=== PATIENT | male | born 2000 | race American Indian/Alaskan Native ===

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

== ENCOUNTER 2020-01-04 07:00 | Emergency (ER) | payer SELFPAY ==
[2020-01-04 07:31] VITALS: BP 110/77
[2020-01-04] MEDS ORDERED: LIDOCAINE MPF (2%) 20 MG/1 ML VIAL 5 ML INFILTRATI ONE (09:38)
[2020-01-04] MEDS ORDERED: LIDOCAINE (2%) 20 MG/1 ML VIAL 20 ML MDV INFILTRATI ONE ×2 (09:45→09:46)
--- NOTE | 2020-01-04 10:11 | Emergency Department Report ---
ED ENT HPI - General Chief complaint: Skin/Abscess/Foreign Body Stated complaint: FB/LEFT EAR Time Seen by Provider: 01/04/20 09:25 Source: patient Mode of arrival: Ambulatory Limitations: No Limitations - History of Present Illness Initial comments: 19-year-old -[place] male patient complains of insect in the left ear x today. He states he felt to crawl into his ear he now has ear pain. He denies any headache or vision changes. He rates his pain as a 8/10 in severity. - Related Data Previous Rx's Medication Instructions Recorded Last Taken Type HYDROcodone/ACETAMINOPHEN [[place] 1 each PO Q6H 3 Days #12 tablet 03/03/18 Unknown Rx 5-325 Tablet] Ibuprofen [Motrin 600 MG tab] 600 mg PO Q8H PRN 10 Days #30 03/03/18 Unknown Rx tablet Ofloxacin 0.3% [Floxin 0.3% Otic] 10 ml OT QDAY 7 Days #1 bottle 01/04/20 Unknown Rx Allergies Allergy/AdvReac Type Severity Reaction Status Date / Time No Known Allergies Allergy Verified 03/03/18 02:58 ED Dental HPI - General Chief complaint: Skin/Abscess/Foreign Body Stated complaint: FB/LEFT EAR Time Seen by Provider: 01/04/20 09:25 Source: patient Mode of arrival: Ambulatory Limitations: No Limitations - Related Data Previous Rx's Medication Instructions Recorded Last Taken Type HYDROcodone/ACETAMINOPHEN [[place] 1 each PO Q6H 3 Days #12 tablet 03/03/18 Unknown Rx 5-325 Tablet] Ibuprofen [Motrin 600 MG tab] 600 mg PO Q8H PRN 10 Days #30 03/03/18 Unknown Rx tablet Ofloxacin 0.3% [Floxin 0.3% Otic] 10 ml OT QDAY 7 Days #1 bottle 01/04/20 Unknown Rx Allergies Allergy/AdvReac Type Severity Reaction Status Date / Time No Known Allergies Allergy Verified 03/03/18 02:58 ED Review of Systems ROS: Stated complaint: FB/LEFT EAR Other details as noted in HPI Constitutional: denies: chills, fever Eyes: denies: vision change ENT: ear pain Respiratory: denies: cough Skin: denies: rash Neurological: denies: headache ED Past Medical Hx - Past Medical History Previous Medical History?: Yes Hx Asthma: Yes - Surgical History Past Surgical History?: No - Social History Smoking Status: Current Every Day Smoker Substance Use Type: Alcohol, Marijuana - Medications Home Medications: Home Medications Medication Instructions Recorded Confirmed Last Taken Type HYDROcodone/ACETAMINOPHEN [[place] 1 each PO Q6H 3 Days #12 tablet 03/03/18 Unknown Rx 5-325 Tablet] Ibuprofen [Motrin 600 MG tab] 600 mg PO Q8H PRN 10 Days #30 03/03/18 Unknown Rx tablet Ofloxacin 0.3% [Floxin 0.3% Otic] 10 ml OT QDAY 7 Days #1 bottle 01/04/20 Unknown Rx ED Physical Exam - General Limitations: No Limitations General appearance: alert, in no apparent distress - Head Head exam: Present: atraumatic, normocephalic - Eye Eye exam: Present: normal appearance. Absent: scleral icterus - Expanded ENT Exam Expanded TM/Canal exam: Foreign Body: Left TM (Brown insect that appears to be a goodson is noted in the ear; insect is moving ) - Neck Neck exam: Present: normal inspection - Cardiovascular Cardiovascular Exam: Present: regular rate - Neurological Exam Neurological exam: Present: alert, oriented X3 - Psychiatric Psychiatric exam: Present: normal affect, normal mood - Skin Skin exam: Present: warm, dry, intact, normal color. Absent: rash, cyanosis, diaphoretic ED Course Vital Signs 01/04/20 07:27 Temperature 98.2 F Pulse Rate 64 Respiratory 18 Rate Blood Pressure 110/77 O2 Sat by Pulse 100 Oximetry - Foreign Body Removal Ear Location: ear canal (L) Foreign Body Suspected: insect If Insect Suspected: ear canal instilled with Foreign Body Removed: yes Foreign Body Removal Technique: forceps Tympanic Membrane Intact: Yes Patient Tolerated Procedure: well Complications: other (Mild to moderate erythema noted of the ear canal without swelling post removal of insect) ED Medical Decision Making - Medical Decision Making Patient presents with insect foreign body in left ear. Insect was removed without complication. Patient tolerated procedure well. There was some erythema and irritation noted post removal of insect. Ofloxacin eardrops prescribed. Recommend follow-up with primary care provider in 3 to 5 days. Strict return precautions were discussed in great detail with patient who sophie balizes understanding. He is well-appearing, his vitals are normal, and stable for discharge home. Critical care attestation.: If time is entered above; I have spent that time in minutes in the direct care of this critically ill patient, excluding procedure time. ED Disposition Clinical Impression: Acute foreign body of left ear canal Qualifiers: Encounter type: initial encounter Qualified Code(s): T16.2XXA - Foreign body in left ear, initial encounter Disposition: TO HOME OR SELFCARE Is pt being admited?: No Condition: Stable Instructions: Ear Foreign Body (ED) Prescriptions: Ofloxacin 0.3% [Floxin 0.3% Otic] 10 ml OT QDAY 7 Days #1 bottle Referrals: AYO LOCKHART [Primary Care Provider] - 3-5 Days Forms: Work/School Release Form(ED)
== END 2020-01-04 10:23 | disposition home or self-care (01) ==
LOC: ED 07:00
DX: S00.452A Superficial foreign body of left ear, initial encounter (principal); J45.909 Unspecified asthma, uncomplicated; F17.200 Nicotine dependence, unspecified, uncomplicated; F12.10 Cannabis abuse, uncomplicated; Z79.1 Long term (current) use of non-steroidal anti-inflammatories (NSAID); Z79.899 Other long term (current) drug therapy; X58.XXXA Exposure to other specified factors, initial encounter; Y93.89 Activity, other specified; Y92.89 Other specified places as the place of occurrence of the external cause; Y99.8 Other external cause status
CPT/HCPCS: 99282

== ENCOUNTER 2020-04-22 10:37 | Emergency (ER) | payer SELFPAY ==
[2020-04-22 10:55] VITALS: BP 120/72
--- NOTE | 2020-04-22 10:55 | Event Note ---
ED Screening Note Date of service: 04/22/20 Time: 10:54 ED Screening Note: Patient complains of right upper quadrant pain x1 month Denies any nausea/vomiting/diarrhea Negative White sign on exam This initial assessment/diagnostic orders/clinical plan/treatment(s) is/are subject to change based on patients health status, clinical progression and re- assessment by fellow clinical providers in the ED. Further treatment and workup at subsequent clinical providers discretion. Patient/guardian urged not to elope from the ED as their condition may be serious if not clinically assessed and managed. Initial orders include: labs
[2020-04-22 11:38] LABS: Basophils % (Auto) 0.3 % (0.0-1.8); Eosinophils # (Auto) 0.1 K/mm3 (0.0-0.4); Eosinophils % (Auto) 1.5 % (0.0-4.3); Hemoglobin 13.5 gm/dl (11.8-15.2); Lymphocytes # (Auto) 4.3 K/mm3 (1.2-5.4); Lymphocytes % (Auto) 42.2 % (13.4-35.0); Mean Corpuscular HGB Conc 33 % (32-34); Mean Corpuscular Volume 93 fl (84-94); Monocytes % (Auto) 9.7 % (0.0-7.3); Platelet Count 216 K/mm3 (140-440); Red Blood Count 4.42 M/mm3 (3.65-5.03); Red Cell Distribution Width 12.8 % (13.2-15.2)
[2020-04-22 12:04] LABS: Alanine Aminotransferase 23 units/L (7-56); Albumin 4.6 g/dL (3.9-5); BUN/Creatinine Ratio 14; Blood Urea Nitrogen 11 mg/dL (9-20); Calcium 9.4 mg/dL (8.4-10.2); Hemolysis Index 9
--- NOTE | 2020-04-22 13:46 | Emergency Department Report ---
ED Abdominal Pain HPI - General Chief Complaint: Abdominal Pain Stated Complaint: ABD PAIN Time Seen by Provider: 04/22/20 10:52 Source: patient Mode of arrival: Ambulatory Limitations: No Limitations - History of Present Illness Initial Comments: The patient was evaluated in the emergency department for symptoms described in the history of present illness. He/she was evaluated in the context of the global COVID-19 pandemic, which necessitated consideration that the patient might be at risk for infection with the virus that causes COVID-19. Instit utional protocols and algorithms that pertain to the evaluation of patients at risk for COVID-19 are in a state of rapid change based on information released by regulatory bodies including the CDC and federal and state organizations. These policies and algorithms were followed during the patient's care in the emergency department. Please note that these policies, procedures and recommendations changed on a rapid basis. 20-year-old -Italian male presents to the emergency room for i ntermittent right side abdominal pain for about a month. Patient reports he has not followed up with his primary care provider which is Dr. Pandya. Patient denies any diarrhea no constipation, no nausea no vomiting, no fever no chills. He states that it comes and goes does not radiate to his testicles. He states that the pain can be sharp and stabbing at times. He has not taken anything for his pain or discomfort. He states is better when he lays down and worse when he works. MD Complaint: abdominal pain Onset/Timin -: month(s) Location: R flank Radiation: none Migration to: no migration Severity scale (0 -10): 3 Quality: stabbing, sharp Consistency: intermittent Improves With: rest Worsens With: movement (Lifting heavy objects) Associated Symptoms: denies other symptoms - Related Data Previous Rx's Medication Instructions Recorded Last Taken Type HYDROcodone/ACETAMINOPHEN [[place] 1 each PO Q6H 3 Days #12 tablet 03/03/18 Unknown Rx 5-325 Tablet] Ibuprofen [Motrin 600 MG tab] 600 mg PO Q8H PRN 10 Days #30 03/03/18 Unknown Rx tablet Ofloxacin 0.3% [Floxin 0.3% Otic] 10 ml OT QDAY 7 Days #1 bottle 01/04/20 Unknown Rx Allergies Allergy/AdvReac Type Severity Reaction Status Date / Time No Known Allergies Allergy Verified 03/03/18 02:58 ED Review of Systems ROS: Stated complaint: ABD PAIN Other details as noted in HPI Comment: All other systems reviewed and negative ED Past Medical Hx - Past Medical History Previous Medical History?: Yes Hx Asthma: Yes - Surgical History Past Surgical History?: No - Social History Smoking Status: Current Every Day Smoker Substance Use Type: Alcohol, Marijuana - Medications Home Medications: Home Medications Medication Instructions Recorded Confirmed Last Taken Type HYDROcodone/ACETAMINOPHEN [[place] 1 each PO Q6H 3 Days #12 tablet 03/03/18 Unknown Rx 5-325 Tablet] Ibuprofen [Motrin 600 MG tab] 600 mg PO Q8H PRN 10 Days #30 03/03/18 Unknown Rx tablet Ofloxacin 0.3% [Floxin 0.3% Otic] 10 ml OT QDAY 7 Days #1 bottle 01/04/20 Unknown Rx ED Physical Exam - General Limitations: No Limitations General appearance: alert, in no apparent distress - Head Head exam: Present: atraumatic, normocephalic - Eye Eye exam: Present: normal appearance - ENT ENT exam: Present: mucous membranes moist - Neck Neck exam: Present: normal inspection - Respiratory Respiratory exam: Present: normal lung sounds bilaterally. Absent: respiratory distress - Cardiovascular Cardiovascular Exam: Present: regular rate, normal rhythm. Absent: systolic murmur, diastolic murmur, rubs, gallop - GI/Abdominal GI/Abdominal exam: Present: soft, normal bowel sounds - Rectal Rectal exam: Present: deferred - Extremities Exam Extremities exam: Present: normal inspection - Back Exam Back exam: Present: normal inspection - Neurological Exam Neurological exam: Present: alert, oriented X3 - Psychiatric Psychiatric exam: Present: normal affect, normal mood - Skin Skin exam: Present: warm, dry, intact, normal color. Absent: rash ED Course Vital Signs 04/22/20 10:51 Temperature 97.9 F Pulse Rate 77 Respiratory 18 Rate Blood Pressure 120/72 [Right] O2 Sat by Pulse 100 Oximetry ED Medical Decision Making - Lab Data Result diagrams: 04/22/20 11:09 04/22/20 11:09 - Medical Decision Making 20-year-old -Italian male presents to the emergency room for intermittent right side abdominal pain for about a month. Patient reports he has not followed up with his primary care provider which is Dr. Pandya. Patient denies any diarrhea no constipation, no nausea no vomiting, no fever no chills. He states that it comes and goes does not radiate to his testicles. He states that the pain can be sharp and stabbing at times. He has not taken anything for his pain or discomfort. He states is better when he lays down and worse when he works. CBC CMP urinalysis Critical care attestation.: If time is entered above; I have spent that time in minutes in the direct care of this critically ill patient, excluding procedure time. ED Disposition Clinical Impression: Intermittent abdominal pain Disposition: DC-01 TO HOME OR SELFCARE Is pt being admited?: No Does the pt Need Aspirin: No Condition: Stable Instructions: Abdominal Pain, Adult, [id number] Additional Instructions: All labs are negative for any acute issues. I recommend you follow-up with your primary care provider. Referrals: [facility] [Provider Group] - 3-5 Days Forms: Work/School Release Form(ED)
[2020-04-22 15:24] LABS: Bacteria,Urine 1+ /HPF (Negative); Bilirubin,Urine NEG (Negative); Blood,Urine NEG (Negative); Color,Urine Yellow (Yellow); Mucus,Urine 3+ /HPF; Protein,Urine <15 mg/dL mg/dL (Negative)
== END 2020-04-22 14:48 | disposition home or self-care (01) ==
LOC: ED 10:37
DX: R10.9 Unspecified abdominal pain (principal); J45.909 Unspecified asthma, uncomplicated; F17.200 Nicotine dependence, unspecified, uncomplicated; F12.10 Cannabis abuse, uncomplicated
CPT/HCPCS: 36415; 80053; 81001; 83690; 85025; 99283